=== PATIENT | male | born 1995 | race Caucasian/White ===

== ENCOUNTER 2023-04-03 09:17 | Emergency (ER) | payer OTHER ==
[~2023-04-03] VITALS: Ht 177.8 cm; Wt 79.5 kg
[2023-04-03] MEDS ORDERED: ACETAMINOPHEN TAB 650MG DOSE (2X325MG) PO ONE (10:55)
[2023-04-03] MEDS ORDERED: KETOROLAC 60MG 2ML VIAL IM ONE (10:55)
[2023-04-03] MEDS ORDERED: diazePAM 5MG TABLET PO ONE (10:55)
[2023-04-03] MEDS ORDERED: LIDOCAINE 5% (LIDODERM) PATCH TD ONE (12:30)
[2023-04-03] MEDS ORDERED: KETO10TAB PO (13:50)
[2023-04-03] MEDS ORDERED: METH-1165 PO (13:50)
[2023-04-03 14:20] VITALS: BP 129/58; TEMP 98.1; O2SAT 98
== END 2023-04-03 14:25 | disposition home or self-care (01) ==
LOC: M ED 09:17
DX: S39.012A Strain of muscle, fascia and tendon of lower back, initial encounter (principal); X58.XXXA Exposure to other specified factors, initial encounter; Y92.89 Other specified places as the place of occurrence of the external cause; Y93.89 Activity, other specified; Y99.8 Other external cause status
CPT/HCPCS: 72110; 96372; 99283; J1885